=== PATIENT | female | born 1980 | race American Indian/Alaskan Native ===

== ENCOUNTER 2016-12-15 10:42 | Emergency (ER) | payer BC ==
--- NOTE | 2016-12-15 11:01 | Emergency Department Report ---
Chief Complaint: Vaginal Bleeding Stated Complaint: VAG BLEED/CLOTS AND ABD PAIN Time Seen by Provider: 12/15/16 10:56 - HPI History of Present Illness: PT states she missed her menstrual cycle for 4 -5 months. Pt states 2 months ago she had a negative home test. PT states that she has had vaginal bleeding and pelvic pain since Thursday. - ROS Review of Systems: - n/v - dysuria + vaginal bleeding - Exam Physical Exam: Obese female, non toxic. No acute distress abd soft, mild tenderness just below the umbilicus MSE screening note: Focused history and physical exam performed. Due to findings the following was ordered: labs ED Disposition for MSE Condition: Stable
[2016-12-15 11:15] LABS: Basophils % (Auto) 0.6 % (0.0-1.8); Hematocrit 34.4 % (30.3-42.9); Hemoglobin 10.9 gm/dl (10.1-14.3); Mean Corpuscular HGB Conc 32 % (30-34); Platelet Count 588 K/mm3 (140-440); Red Blood Count 4.94 M/mm3 (3.65-5.03); Red Cell Distribution Width 19.4 % (13.2-15.2); White Blood Count 9.8 K/mm3 (4.5-11.0)
[2016-12-15 11:19] LABS: Mean Corpuscular Hemoglobin 22 pg (28-32); Mean Corpuscular Volume 70 fl (79-97)
[2016-12-15 11:37] LABS: Alanine Aminotransferase 9 units/L (7-56); Albumin 3.6 g/dL (3.9-5); Albumin/Globulin Ratio 0.9 %; Alkaline Phosphatase 74 units/L (35-129); Anion Gap 16 mmol/L; BUN/Creatinine Ratio 13.33; Blood Urea Nitrogen 8 mg/dL (7-17); Calcium 8.7 mg/dL (8.4-10.2); Carbon Dioxide 24 mmol/L (22-30); Chloride 103.9 mmol/L (98-107); Glucose 103 mg/dL (65-100); Potassium 4.5 mmol/L (3.6-5.0); Sodium 139 mmol/L (137-145); Total Protein 7.4 g/dL (6.3-8.2)
[2016-12-15 13:53] LABS: Bacteria,Urine 1+ /HPF (Negative); Bilirubin,Urine NEG (Negative); Blood,Urine MOD (Negative); Ketones,Urine TR mg/dL (Negative); Leukocyte Esterase,Urine NEG (Negative); Mucus,Urine 3+ /HPF; Nitrite,Urine NEG (Negative); Urobilinogen,Urine < 2.0 mg/dL (<2.0)
[2016-12-15 14:00] LABS: RBC,Urine > 182.0 /HPF (0.0-6.0); WBC,Urine > 182.0 /HPF (0.0-6.0)
--- NOTE | 2016-12-15 14:49 | Ultrasound Report ---
ULTRASOUND PELVIS COMPLETE - TRANSABDOMINAL AND TRANSVAGINAL: INDICATION: Irregular bleeding and pelvic pain. COMPARISON: None similar at this institution. FINDINGS: Transabdominal and transvaginal pelvic sonography performed in this patient with LMP stated sometime in June 2016 limited due to patient's body habitus, though demonstrates a 9.9 x 5.2 x 5.4 cm anteverted uterus. Endometrial thickness 1.3 cm toward the fundus, endovaginal image 4. Cervix closed, though somewhat prominent at 1.6 cm AP, endovaginal image 2. No significant free fluid. Unremarkable 3.9 x 2.2 x 3.0 cm right ovary. Left ovary also measures 3.2 x 2 x 5 cm with a 2.2 cm follicular cyst. Small nonspecific linear echogenicities appear parametrial as on endovaginal images 13-16, amongst others in this patient stating prior history of tubal ligation, exact procedure type unknown. CONCLUSION: No acute pelvic sonographic abnormality with nonspecific cervical sonographic appearance as also small linear parametrial echogenicities, as described. Please correlate. Thank you for the opportunity to participate in this patient's care.
--- NOTE | 2016-12-15 15:23 | Emergency Department Report ---
ED Female HPI - General Chief complaint: Vaginal Bleeding Stated complaint: VAG BLEED/CLOTS AND ABD PAIN Time Seen by Provider: 12/15/16 10:56 Source: patient Mode of arrival: Ambulatory Limitations: No Limitations - History of Present Illness Initial comments: PT c/o vaginal bleeding since Thursday. PT states she is afraid she has fibroids. PT states she did not have a cycle for 4-5 months. PT states she is passing clots. PT states she has hx of a tubal ligation. MD Complaint: vaginal bleeding Onset/Timin -: Gradual, days(s) Location: suprapubic Radiation: non-radiating Severity: moderate Severity scale (0 -10): 6 Quality: cramping Consistency: other (waxes wans ) Improves with: none Worsens with: none Are you Now?: No Associated Symptoms: vaginal bleeding, abdominal pain. denies: nausea/vomiting , fever/chills, loss of appetite, dysuria - Related Data Sexually active: Yes Previous Rx's Medication Instructions Recorded Last Taken Type Acetaminophen/Codeine [Tylenol #3] 1 tab PO Q6H PRN #7 tab 12/15/16 Unknown Rx Ibuprofen [Motrin] 600 mg PO Q8H PRN #15 tablet 12/15/16 Unknown Rx Nitrofurantoin [place]/M-Cryst 100 mg PO Q12HR #14 capsule 12/15/16 Unknown Rx [Macrobid CAP] Allergies Allergy/AdvReac Type Severity Reaction Status Date / Time No Known Allergies Allergy Verified 12/15/16 11:01 ED Review of Systems ROS: Stated complaint: VAG BLEED/CLOTS AND ABD PAIN Other details as noted in HPI Comment: All other systems reviewed and negative Constitutional: denies: chills, fever Cardiovascular: denies: chest pain Gastrointestinal: abdominal pain. denies: nausea, vomiting Genitourinary: abnormal menses, other (denies itching ). denies: dysuria, frequency, discharge Neurological: denies: headache ED Past Medical Hx - Past Medical History Previous Medical History?: No Hx Hypertension: No - Surgical History Past Surgical History?: Yes Additional Surgical History: - Family History Family history: no significant - Social History Smoking Status: Current Every Day Smoker Substance Use Type: None - Medications Home Medications: Home Medications Medication Instructions Recorded Confirmed Last Taken Type Acetaminophen/Codeine [Tylenol #3] 1 tab PO Q6H PRN #7 tab 12/15/16 Unknown Rx Ibuprofen [Motrin] 600 mg PO Q8H PRN #15 tablet 12/15/16 Unknown Rx Nitrofurantoin [place]/M-Cryst 100 mg PO Q12HR #14 capsule 12/15/16 Unknown Rx [Macrobid CAP] ED Physical Exam - General Limitations: No Limitations General appearance: alert, in no apparent distress, obese - Head Head exam: Present: atraumatic, normocephalic, normal inspection - Eye Eye exam: Present: normal appearance, PERRL, EOMI. Absent: scleral icterus, conjunctival injection - ENT ENT exam: Present: normal exam, normal external ear exam - Neck Neck exam: Present: normal inspection, full ROM - Respiratory Respiratory exam: Present: normal lung sounds bilaterally, decreased breath sounds (likely due to pt's body habitus ) - Cardiovascular Cardiovascular Exam: Present: regular rate, normal rhythm, normal heart sounds - GI/Abdominal GI/Abdominal exam: Present: soft, tenderness (mild surpapubic tendernss ), normal bowel sounds, other (obese ). Absent: distended, guarding, rebound - Expanded GI/Abdominal Exam Expanded GI/Abdominal exam: Absent: tenderness at Mcburney's Point - Extremities Exam Extremities exam: Present: normal inspection, full ROM - Back Exam Back exam: Present: normal inspection, full ROM. Absent: CVA tenderness (R), CVA tenderness (L) - Neurological Exam Neurological exam: Present: alert, oriented X3, normal gait - Psychiatric Psychiatric exam: Present: normal affect, normal mood - Skin Skin exam: Present: warm, dry, intact ED Course Vital Signs 12/15/16 12/15/16 10:57 15:50 Temperature 98.2 F Pulse Rate 68 Respiratory 16 Rate Blood Pressure 184/114 Blood Pressure 150/80 [Left] O2 Sat by Pulse 98 Oximetry bp improved without intervention. PT aware she will need bp recheck on follow up - Reevaluation(s) Reevaluation #1: 12/15/16 15:20 PT aware of lab and US results. PT aware she will need to follow up with PCP for bp recheck. - Pulse Oximetry Interpretation Digit-Finger Initial Pulse Oximetry Readin Actions Taken: none ED Medical Decision Making - Lab Data Result diagrams: 12/15/16 11:06 12/15/16 11:06 Labs 12/15/16 12/15/16 12/15/16 11:06 11:06 11:06 WBC 9.8 RBC 4.94 Hgb 10.9 Hct 34.4 MCV 70 L MCH 22 L MCHC 32 RDW 19.4 H Plt Count 588 H Lymph % (Auto) 45.1 H [place] % (Auto) 4.8 Eos % (Auto) 1.0 Baso % (Auto) 0.6 Lymph # 4.4 [place] # 0.5 Eos # 0.1 Baso # 0.1 Seg Neutrophils % 48.5 Seg Neutrophils # 4.8 Sodium 139 Potassium 4.5 Chloride 103.9 Carbon Dioxide 24 Anion Gap 16 BUN 8 Creatinine 0.6 L Estimated GFR > 60 BUN/Creatinine Ratio 13.33 Glucose 103 H Calcium 8.7 Total Bilirubin 0.30 AST 9 ALT 9 Alkaline Phosphatase 74 Total Protein 7.4 Albumin 3.6 L Albumin/Globulin Ratio 0.9 HCG, Qual Negative Urine Color Urine Turbidity Urine pH Ur Specific [place] Urine Protein Urine Glucose (UA) Urine Ketones Urine Blood Urine Nitrite Urine Bilirubin Urine Urobilinogen Ur Leukocyte Esterase Urine WBC (Auto) Urine RBC (Auto) Urine Bacteria (Auto) Urine Mucus 12/15/16 13:05 WBC RBC Hgb Hct MCV MCH MCHC RDW Plt Count Lymph % (Auto) [place] % (Auto) Eos % (Auto) Baso % (Auto) Lymph # [place] # Eos # Baso # Seg Neutrophils % Seg Neutrophils # Sodium Potassium Chloride Carbon Dioxide Anion Gap BUN Creatinine Estimated GFR BUN/Creatinine Ratio Glucose Calcium Total Bilirubin AST ALT Alkaline Phosphatase Total Protein Albumin Albumin/Globulin Ratio HCG, Qual Urine Color Yellow Urine Turbidity Turbid Urine pH 5.0 Ur Specific [place] 1.020 Urine Protein 100 mg/dl Urine Glucose (UA) Neg Urine Ketones Tr Urine Blood Mod Urine Nitrite Neg Urine Bilirubin Neg Urine Urobilinogen < 2.0 Ur Leukocyte Esterase Neg Urine WBC (Auto) > 182.0 H Urine RBC (Auto) > 182.0 Urine Bacteria (Auto) 1+ Urine Mucus 3+ - Radiology Data Radiology results: report reviewed Pelvic US -NAP, L ovary with follicular cyst 2 cm - Differential Diagnosis , ectopic, uti, fibroids Critical Care Time: No Critical care attestation.: If time is entered above; I have spent that time in minutes in the direct care of this critically ill patient, excluding procedure time. 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
[2016-12-15 15:50] VITALS: BP 150/80
== END 2016-12-15 15:50 | disposition home or self-care (01) ==
LOC: ED 10:42
DX: N93.9 Abnormal uterine and vaginal bleeding, unspecified (principal); N39.0 Urinary tract infection, site not specified; N83.202 Unspecified ovarian cyst, left side; R03.0 Elevated blood-pressure reading, without diagnosis of hypertension; F17.200 Nicotine dependence, unspecified, uncomplicated; Z98.890 Other specified postprocedural states
CPT/HCPCS: 36415; 76830; 76856; 80053; 81001; 84703; 85025; 99284